=== PATIENT | male | born 1960 | race Caucasian/White ===

== ENCOUNTER → 2020-05-29 09:26 | Outpatient (CLI) | payer BC, SELFPAY ==
--- NOTE | 2020-05-29 09:46 | CT_ITS ---
STUDY: CT RIGHT SHOULDER REASON FOR EXAM: Male, 59 years old. RIGHT SHOULDER PAIN/ ARTHROGRAM RADIATION DOSAGE (If Supplied By Facility): CTDIvol = ( 46.67 ) mGy, DLP = ( 667.61 ) mGycm TECHNIQUE: The patient was scanned in a multi detector CT scanner. High resolution transaxial imaging was performed following the administration of intra-articular contrast material. Sagittal and coronal images were reconstructed. Individualized dose optimization techniques were used for this CT. COMPARISON: Comparison is made with prior shoulder arthrogram done earlier in the day. FINDINGS: There is mild osteoarthritis of the glenohumeral articulation, with mild articular joint space narrowing and mild osteoarthritic spurring. Normal glenoid rim, neck and visualized scapula. Normal humeral head, neck and tuberosities. Normal coracoid process. Normal visualized lateral clavicle. There is moderate osteoarthritis with articular joint space narrowing and with osteoarthritic spurring. There is a Type II morphology (curved), with a neutral orientation. There is evidence of a complete tear of the supraspinatus muscle tendon. CT/Extremity Upper WITH Contrast IMPRESSION: Rotator cuff tear. Degenerative changes of the acromioclavicular joint and glenohumeral joint. Electronically Signed: Gurdeep Morales, at 13:56 EST , Service support ,
[2020-05-29 10:06] LABS: International Normalized Ratio 1.6; Prothrombin Time (Protime)PT. 18.4 SECONDS (11.7-14.9)
[2020-05-29 10:07] LABS: Partial Thromboplast Time 30.7 Seconds (24.1-36.2)
--- NOTE | 2020-05-29 10:30 | RAD_ITS ---
CLINICAL HISTORY: Male, 59 years old. Right shoulder pain and limited range of motion. PROCEDURE: ARTHROGRAM - RIGHT SHOULDER CONSENT: The procedure as well as the benefits and possible complications including infection and bleeding were expanded to the patient. Informed consent was obtained. FLUOROSCOPY TIME (if supplied): (28 seconds) minutes/seconds. Injection Information: 10 cc of dilute MRI contrast. Number of images obtained: 4 TECHNIQUE: (All elements of maximal sterile barrier technique followed, including US elements as applicable) The patient was in the supine position. The overlying skin was prepped and draped in the usual sterile fashion. Following local anesthetic application and under direct fluoroscopic guidance, a 22-gauge spinal needle was placed into the shoulder joint. 2 cc of ISOVUE 300 was injected for confirmation. Following this, 10 cc of dilute MRI contrast was injected. The patient tolerated the procedure well. A CT scan will follow. RAD/Arthrogram Shoulder IMPRESSION: Successful right shoulder arthrogram. CT scan will follow. Electronically Signed: Gurdeep Morales, at 13:55 EST , Service support ,
== END ==
PROVIDERS: PCP Nurse Practitioner Primary Care; Referring Provider Orthopaedic Surgery; Visit Provider Orthopaedic Surgery
DX: M75.121 Complete rotator cuff tear or rupture of right shoulder, not specified as traumatic (principal)
CPT/HCPCS: 23350; 36415; 73040; 73201; 85610; 85730; A9575; Q9967

== ENCOUNTER 2021-07-30 08:02 | Outpatient (CLI) | payer BC, SELFPAY ==
--- NOTE | 2021-07-30 08:06 | CT_ITS ---
STUDY: CTA OF THE BRAIN REASON FOR EXAM: Male, 60 years old. Left PULSATILE TINNITUS RADIATION DOSAGE (If Supplied By Facility): CTDIvol = ( 27.29 ) mGy, DLP = ( 1257.02 ) mGycm TECHNIQUE: CT angiography was performed with a multi-detector CT scanner. Data acquisition was obtained from the skull base through the vertex following intravenous administration of IV 100mL Isovue-370. MIP images were reconstructed from the axial data set. Post-processing of the angiographic images was performed, with multiplanar reformation and 3D reconstruction. Individualized dose optimization techniques were used for this CT. COMPARISON: None. FINDINGS: Normal bilateral petrous carotid arteries. Normal right cavernous carotid artery with a normal supraclinoid bifurcation. Normal left cavernous carotid artery with a normal supraclinoid bifurcation. Normal right A1 segments of the anterior cerebral artery. Normal left A1 segments of the anterior cerebral artery. Normal intact anterior communicating artery (ACOM). Normal bilateral A2 segments of the anterior cerebral arteries. Normal right M1 and M2 segments of the middle cerebral arteries, with a normal M1 bifurcation. Normal left M1 and M2 segments of the middle cerebral arteries, with a normal M1 bifurcation. Normal right posterior communicating artery (PCOM). Normal left posterior communicating artery (PCOM). Normal bilateral vertebral arteries. Normal basilar artery with a normal basilar bifurcation. The visualized bilateral superior cerebellar (SCA) arteries are normal. Normal bilateral P1, P2 and visualized P3 segments of the posterior cerebral arteries. There is no demonstrated aneurysm of the [place]. There is no demonstrated abnormality of the visualized brain. CT/CTA Head W/WO Contrast IMPRESSION: Normal [place] without a demonstrated aneurysm or hemodynamically significant stenosis. Electronically Signed: Gurdeep Morales MD at 8:45 EST , Service support ,
[2021-07-30 08:15] LABS: CREATININE FINGERSTICK 1.1 mg/dL (0.70-1.30); EGFR FINGERSTICK > 60.0000 mL/min (>60)
== END 2021-07-30 23:59 | disposition short-term general hospital (02) ==
PROVIDERS: PCP Nurse Practitioner Primary Care; Referring Provider Otolaryngology; Visit Provider Otolaryngology
DX: H93.12 Tinnitus, left ear (principal)
CPT/HCPCS: 70496; Q9967

== ENCOUNTER → 2022-06-23 | Outpatient (CLI) | payer BC, SELFPAY ==
--- NOTE | 2022-06-23 07:10 | ECHOD_ITS ---
Reason For Study: Arrhythmia Procedure This was a 2D Doppler, Color Flow transthoracic echocardiogram. The exam was of adequate technical quality. Exam performed in department. Left Ventricle Normal LV size. Left ventricular systolic function is normal. The estimated ejection fraction is 60 %. Stage 2 diastolic dysfunction. No regional wall motion abnormalities noted. Right Ventricle Normal RV size. Normal systolic function. Atria Normal left atrium. Normal right atrium. No doppler evidence for ASD. Mitral Valve There is no mitral annular calcification. Normal mitral valve. Trivial mitral valve insufficiency. Tricuspid Valve Normal tricuspid valve. Mild tricuspid valve insufficiency. Right ventricular systolic pressure estimated to be 35 mmHg. Aortic Valve Trisinus/trileaflet aortic valve. Normal aortic valve. Pulmonic Valve The pulmonic valve is not well visualized. Trivial pulmonic valve insufficiency. Great Vessels Mildly dilated aortic root. Pericardium/Pleural No pericardial effusion. MMode/2D Measurements & Calculations LVIDd: 5.2 cm IVSd: 1.0 cm Ao root diam: 4.1 cm LVIDs: 3.6 cm LVPWd: 0.72 cm LA dimension: 4.4 cm RVDd: 4.0 cm FS: 31.0 % LAV(MOD-bp): 81.6 ml LA A4 area: 23.4 cm2 RA A4 area: 20.4 cm2 LAV(MOD-bp) Indexed: 36.3 ml/m2 LAV(MOD-sp2): 85.5 ml LAV(MOD-sp4): 76.8 ml Time Measurements MV dec time: 0.20 sec Doppler Measurements & Calculations MV E max shukri: 54.1 cm/sec Lat Peak E' Shukri: 8.8 cm/sec Med Peak E' Shukri: 7.9 cm/sec MV A max shukri: 56.9 cm/sec E/E' lat: 6.2 E/E' med: 6.8 MV E/A: 0.95 MV V2 max: 59.1 cm/sec MV P1/2t max shukri: 54.8 cm/sec Ao V2 max: 97.1 cm/sec MV max P.4 mmHg MV P1/2t: 73.1 msec Ao max P.8 mmHg MV V2 mean: 32.9 cm/sec MV dec slope: 219.7 cm/sec2 MV mean P.51 mmHg MVA(P1/2t): 3.0 cm2 MV V2 VTI: 19.5 cm LV V1 max: 81.4 cm/sec PA V2 max: 84.8 cm/sec PI end-d shukri: 116.3 cm/sec LV V1 max P.7 mmHg TR max shukri: 281.5 cm/sec TR max P.7 mmHg ECHO/Echo Complete Interpretation Summary Left ventricular systolic function is normal. The estimated ejection fraction is 60 %. Trivial mitral valve insufficiency. Mild tricuspid valve insufficiency. Trivial pulmonic valve insufficiency. Mildly dilated aortic root. Stage 2 diastolic dysfunction. Ordering Physician: Jamie Berry Referring Physician: Jamie Berry Performed By: Deacon Galaviz RCS
--- NOTE | 2022-06-23 12:58 | STRESSREP_ITS ---
Stress Test Report Date: 06-23-2022 Procedure: Exercise tolerance test/imaging study Indications: Chest pain; palpitations; history of thromboembolic disease/DVT/PE Consent: Per the patient Procedure: The patient exercised on a Mauricio protocol for 9 minutes completing Stage III achieving a peak heart rate of 155 bpm (98% predicted maximal heart rate) with resting blood pressure of 140/88 mmHg and a peak blood pressure 158/100 mmHg and a peak MET capacity of 10 METs. The baseline ECG demonstrated sinus bradycardia. The peak exercise ECG demonstrated no obvious ECG changes. There was an isolated PVC during exercise and a rare PAC during recovery. The functional capacity was considered good. There was no complaint of chest discomfort during exercise or recovery. The examination was discontinued secondary to dyspnea and leg fatigue. Impression: 1. Technically adequate (percent predicted maximal heart rate greater than 85%) exercise tolerance test 2. Peak exercise ECG with no obvious ECG change 3. There was an isolated PVC during exercise and a rare PAC during recovery 4. Nuclear images pending Myocardial perfusion imaging study: Technique: The patient was injected with 15.0 mCi of technetium 99m Cardiolite and subsequently rest SPECT Cardiolite nuclear imaging was obtained in the horizontal long, vertical long, and short axis views. The patient exercised on a Mauricio protocol for 9 minutes completing Stage III achieving a peak heart rate of 155 bpm (98% predicted maximal heart rate) with resting blood pressure of 140/88 mmHg and a peak blood pressure 158/100 mmHg and a peak MET capacity of 10 METs. The patient was injected with 45.0 mCi of technetium 99m Cardiolite and subsequently stress SPECT Cardiolite nuclear imaging was obtained in the horizontal long, vertical long, and short axis views. A gated Cardiolite study at peak stress was obtained. Interpretation: Rest and stress SPECT Cardiolite nuclear imaging status post realignment, normalization, and attenuation correction, demonstrates the appearance of relative uniform tracer uptake and myocardial perfusion appearing within normal limits. There is end systolic thickening and brightening. The gated Cardiolite study demonstrates myocardial thickening and inward wall motion. The reported LVEF is 57%. Impression: 1. Rest and stress SPECT Cardiolite nuclear imaging demonstrate relative uniform tracer uptake and myocardial perfusion appearing within normal limits. 2. The gated Cardiolite study reports an LVEF of 57%. This note was generated with [employer] software. It may contain incorrect words, spelling, and punctuation that were not noted in checking the note before signing.
== END | disposition home or self-care (01) ==
LOC: CVS 07:08
PROVIDERS: PCP Nurse Practitioner Primary Care; Referring Provider Internal Medicine Cardiovascular Disease; Visit Provider Internal Medicine Cardiovascular Disease
DX: R00.2 Palpitations (principal); I49.49 Other premature depolarization; R94.31 Abnormal electrocardiogram [ECG] [EKG]; R07.9 Chest pain, unspecified
CPT/HCPCS: 78452; 93017; 93306; A9500; A4216

== ENCOUNTER → 2022-11-09 | Outpatient (CLI) | payer BC, SELFPAY ==
--- NOTE | 2022-11-09 12:42 | CT_ITS ---
STUDY: CT LUMBAR SPINE WITH INTRATHECAL CONTRAST (LUMBAR CT MYELOGRAM) REASON FOR EXAM: Male, 61 years old. SPINAL STENOSIS RADIATION DOSAGE (If Supplied By Facility): CTDIvol = ( 22.57 ) mGy, DLP = ( 627.52 ) mGycm TECHNIQUE: Transaxial images were obtained from the L1 vertebra through the S1 vertebral level, following intrathecal administration of 12 ml of Isovue-M 200 contrast material, performed by Dr. Carmen BARTHOLOMEW. Please refer to this physicians technical notes for procedural details. Coronal and sagittal reconstructions were obtained. Individualized dose optimization techniques were used for this CT. COMPARISON: None. FINDINGS: Normal lumbar lordosis. There is no substantial scoliosis. Normal vertebrae of the lumbar spine. There is dependent layering of contrast material in the distal thecal sac. The conus medullaris terminates in a normal position at the T12-L1 level.. There is no demonstrated cauda equina nerve root abnormality or intraspinal mass. L1-2: Anterior spondylosis. The disc spaces relatively well maintained. No significant stenosis seen. L2-3: Moderate sized extradural filling defect into with the herniated disc versus in the midline and to the left side of the midline causing central canal stenosis of a moderate degree. There is also evidence of facet joint osteoarthritis and hypertrophy with the hypertrophy of the ligamentum flavum. There is also evidence of bilateral neural foraminal stenosis. L3-4: The disc spaces are well-maintained. Mild degree of diffuse posterior disc bulge. Mild degree of central canal stenosis due to hypertrophied facet joints as well as the ligamenta flava and mild degree of diffuse posterior disc bulge. L4-5: Moderate degree of disc space narrowing. Spondylosis. No significant stenosis seen. L5-S1: Spondylosis. No significant stenosis seen. Normal visualized sacroiliac joints. Normal visualized paraspinous soft tissue structures. CT/Spine Lumbar WITH Contrast IMPRESSION: Spinal stenosis at the L2-L3 level to a moderate degree as well as spinal stenosis at the L3-L4 level although to a lesser extent. Electronically Signed: Gurdeep Morales MD at 14:50 EDT ,
[2022-11-09 12:59] VITALS: BP 153/89; PULSE 52; RESP 18; TEMP 36.5; O2SAT 99
[2022-11-09 13:00] VITALS: BP 153/89; PULSE 52; RESP 18; O2SAT 99; BMI 31.1
--- NOTE | 2022-11-09 13:08 | RAD_ITS ---
PROCEDURE: LUMBAR MYELOGRAM DATE OF EXAMINATION: Spinal stenosis. INDICATION: Male, 61 years old. Low back pain. PHYSICIAN: Gurdeep Morales M.D. CONSENT: The patient''s history and physical findings were reviewed. The lumbar myelogram procedure was discussed with the patient prior to signing a consent. SEDATION: Local anesthesia with 3 mL of 1% lidocaine was used. FLUOROSCOPY TIME (if supplied): (2:36) minutes/seconds. 97.91 mGy. Injection Information: 12 cc of Isovue M 200 Number of images obtained: 4 TECHNIQUE: Digital fluoroscopy was used to identify a safe approach for the lumbar myelogram. The back was prepped and draped in usual fashion. Local anesthesia was utilized. Under fluoroscopic guidance a 22-gauge spinal needle was inserted into the spinal canal at the L2-L3 level. Clear spinal fluid was seen with a sample sent to the laboratory. 12 mL of Isovue 200 M was injected into the spinal canal. There is good opacification of the spinal fluid. There is evidence of extradural defect and spinal stenosis at the L2-L3 level. RAD/Lumbar Myelogram IMPRESSION: Extradural defect and spinal stenosis at the L2-L3 level. CT scan will follow. The patient tolerated the procedure well. Electronically Signed: Gurdeep Morales MD at 14:08 EDT ,
[2022-11-09] MEDS: Lidocaine 2% (5ml sdv) 5 ML VIAL.MPF INFILT (13:15)
[2022-11-09 13:50] VITALS: BP 152/89; PULSE 49; RESP 16; O2SAT 97
[2022-11-09 14:30] VITALS: BP 141/95; PULSE 48; RESP 16; O2SAT 99
== END | disposition home or self-care (01) ==
PROVIDERS: PCP Nurse Practitioner Primary Care; Referring Provider Orthopaedic Surgery; Visit Provider Orthopaedic Surgery
DX: M48.061 Spinal stenosis, lumbar region without neurogenic claudication (principal); M47.26 Other spondylosis with radiculopathy, lumbar region; M51.36 Other intervertebral disc degeneration, lumbar region
CPT/HCPCS: 62304; 72132; Q9965